=== PATIENT | male | born 1980 | race African-American/Black ===

== ENCOUNTER → 2017-05-12 | Outpatient (REF) | LOC: WSOH 10:11 | DX: Z00.00 Encounter for general adult medical examination without abnormal findings (principal) ==

== ENCOUNTER 2019-03-22 12:24 | Emergency (ER) | payer OTHER ==
[~2019-03-22] VITALS: Ht 175.3 cm; Wt 109.1 kg
[2019-03-22 12:32] VITALS: BP 136/88; TEMP 98.5
[2019-03-22] MEDS ORDERED: MOBIC 7.5MG7.5 MG PO (14:08)
[2019-03-22] MEDS ORDERED: FLEXERIL 1010 MG/TAB PO (14:09)
[2019-03-22 14:16] VITALS: PULSE 62
== END 2019-03-22 14:17 | disposition home or self-care (01) ==
LOC: COL.ER 12:24
DX: M62.838 Other muscle spasm (principal)
CPT/HCPCS: J1885

== ENCOUNTER 2019-04-23 21:16 | Emergency (ER) | payer OTHER ==
[~2019-04-23] VITALS: Ht 175.3 cm; Wt 113.6 kg
[~2019-04-23 21:16] MED LIST: FLEXERIL 1010 MG/TAB PO; MOBIC 7.5MG7.5 MG PO
[2019-04-23 21:24] VITALS: BP 145/84; TEMP 97.2
[2019-04-23] MEDS ORDERED: FLEXERIL 1010 MG/TAB PO (21:45)
[2019-04-23] MEDS ORDERED: MOTRIN 800800 MG/TAB PO (21:45)
[2019-04-23 22:15] VITALS: PULSE 79
== END 2019-04-23 22:16 | disposition home or self-care (01) ==
LOC: COL.ER 21:16
DX: M54.5 Low back pain (principal); M79.18 Myalgia, other site
CPT/HCPCS: J1885

== ENCOUNTER 2021-04-03 19:17 | Emergency (ER) | payer OTHER ==
[~2021-04-03] VITALS: Ht 175.3 cm; Wt 118.2 kg
[~2021-04-03 19:17] MED LIST changes: +MOTRIN 800800 MG/TAB PO
[2021-04-03 19:22] VITALS: BP 162/96; TEMP 98.3
[2021-04-03] MEDS ORDERED: FLEXERIL 1010 MG/TAB PO (19:42)
[2021-04-03 19:50] VITALS: PULSE 77
== END 2021-04-03 19:50 | disposition home or self-care (01) ==
LOC: COL.ER 19:17
DX: S00.93XA Contusion of unspecified part of head, initial encounter (principal); M62.838 Other muscle spasm; W20.8XXA Other cause of strike by thrown, projected or falling object, initial encounter; Y92.59 Other trade areas as the place of occurrence of the external cause; Y99.0 Civilian activity done for income or pay

== ENCOUNTER 2022-01-30 07:46 | Emergency (ER) | payer OTHER ==
[~2022-01-30] VITALS: Ht 175.3 cm; Wt 122.7 kg
[2022-01-30 07:52] VITALS: TEMP 98.7
[2022-01-30 10:27] VITALS: BP 142/71; PULSE 86
== END 2022-01-30 10:27 | disposition home or self-care (01) ==
LOC: COL.ER 07:46
DX: T55.0X1A Toxic effect of soaps, accidental (unintentional), initial encounter (principal); Y99.0 Civilian activity done for income or pay; Y92.59 Other trade areas as the place of occurrence of the external cause